=== PATIENT | female | born 1965 | race Caucasian/White ===

== ENCOUNTER → 2018-10-27 | Outpatient (CLI) | payer OTHER ==
--- NOTE | 2018-10-28 09:48 | MM ---
Reason for exam: screening (asymptomatic). Last mammogram was performed 3 years and 3 months ago. History: Patient is postmenopausal. Cyst aspiration of the right breast. Physical Findings: A clinical breast exam by your physician is recommended on an annual basis and results should be correlated with mammographic findings. MG Screening Mammo w CAD Bilateral CC and MLO view(s) were taken. Prior study comparison: July 17, 2015, bilateral MG screening mammo w CAD. August 27, 2011, bilateral digital screening mammo w/CAD. The breast tissue is heterogeneously dense. This may lower the sensitivity of mammography. Focal asymmetry upper outer right breast 5.1cm from nipple. This finding is changed when compared with previous exams. ASSESSMENT: Incomplete: need additional imaging evaluation, BI-RAD 0 RECOMMENDATION: Special view mammogram of the right breast. If lesion persists on supplemental views, image directed ultrasound is recommended. [facility] will attempt to contact patient to return for supplemental views and ultrasound if indicated.
== END ==
LOC: RADMAMWWP 15:31
PROVIDERS: ATTEND Family Medicine
DX: Z12.31 Encounter for screening mammogram for malignant neoplasm of breast (principal)
CPT/HCPCS: 77067

== ENCOUNTER → 2018-11-04 | Outpatient (CLI) | payer OTHER ==
--- NOTE | 2018-11-08 08:08 | MM ---
Reason for exam: additional evaluation requested from abnormal screening. Last mammogram was performed less than 1 month ago. History: Patient is postmenopausal. Cyst aspiration of the right breast, 2011. Took hormonal contraceptives for 7 years beginning at age 23. Physical Findings: Nurse did not find any significant physical abnormalities on exam. MG Work Up Mamm w CAD RT Spot compression CC, spot compression MLO, and ML view(s) were taken of the right breast. Prior study comparison: October 27, 2018, bilateral MG screening mammo w CAD. July 17, 2015, bilateral MG screening mammo w CAD. The breast tissue is heterogeneously dense. This may lower the sensitivity of mammography. The previously seen abnormality resolves on additional views and appears as fibroglandular tissue compatible with summation. No suspicious abnormality. These results were verbally communicated with the patient and result sheet given to the patient on 11/04/18. ASSESSMENT: Benign, BI-RAD 2 RECOMMENDATION: Return to routine screening mammogram schedule for both breasts.
== END | disposition home or self-care (01) ==
LOC: RADMAMWWP 14:29
PROVIDERS: ATTEND Family Medicine
DX: R92.8 Other abnormal and inconclusive findings on diagnostic imaging of breast (principal)
CPT/HCPCS: 77065

== ENCOUNTER → 2022-06-17 | Outpatient (CLI) | payer BC ==
--- NOTE | 2022-07-20 16:03 | CE ---
CARDIAC ELECTROPHYSIOLOGY REPORT STUDY PERFORMED: Thirty days event monitor. INDICATIONS: Rule out cardiac arrhythmia. FINDINGS: The patient was monitored for 30 days. The baseline rhythm appeared to be sinus mechanism. No episode of any tachy or naida arrhythmia noted. No significant sinus pause or sinus arrest seen. The patient reported no symptoms. No advanced AV block seen as well. CONCLUSION: This is a normal 30 days event monitor with no arrhythmia noted. MMODL / IJN: [id number] /
== END | disposition home or self-care (01) ==
LOC: RADECHMAIN 07:37
PROVIDERS: ATTEND Family Medicine
DX: I48.0 Paroxysmal atrial fibrillation (principal)
CPT/HCPCS: 93270

== ENCOUNTER → 2023-05-07 | Outpatient (CLI) | payer BC ==
--- NOTE | 2023-05-07 14:27 | US ---
EXAMINATION TYPE: US extremity nonvasc mass RT DATE OF EXAM: 05/07/2023 COMPARISON: NONE CLINICAL INDICATION: Female, 57 years old with history of M85.671 SOFT TISSUE MASS; patient had an in jury to right great toe. edema/palpable noted a few months ago TECHNIQUE: FINDINGS: scanned within area of concern, outer great right toe, fluid collection (anechoic area) no bambi = 0.7 x 0.4 x 0.9cm IMPRESSION: Small fluid collection at the site of clinical concern.
== END | disposition home or self-care (01) ==
LOC: RADUSWWP 13:02
PROVIDERS: ATTEND Family Medicine
DX: M85.671 Other cyst of bone, right ankle and foot (principal)